=== PATIENT | male | born 1960 | race Caucasian/White ===

== ENCOUNTER 2017-01-24 20:27 | Emergency (ER) | payer OTHER ==
[~2017-01-24] VITALS: Ht 195.6 cm; Wt 154.2 kg
[2017-01-24 20:38] VITALS: BP 146/85
--- NOTE | 2017-01-25 00:23 | NUR ---
PATIENT LEFT WITHOUT BEING SEEN BY DR. BAEZ. NO FURTHER CARE PROVIDED FOR PATIENT.
== END 2017-01-25 00:23 | disposition left against medical advice (07) ==
LOC: MED 20:27
DX: R07.89 Other chest pain (principal); Z53.21 Procedure and treatment not carried out due to patient leaving prior to being seen by health care provider
CPT/HCPCS: 82948